=== PATIENT | male | born 1990 | race Caucasian/White ===

== ENCOUNTER 2018-11-13 14:46 | Inpatient (IN) | payer SELFPAY ==
[2018-11-13] MEDS ORDERED: SODIUM CHLORIDE 0.9% 500 ML INFUS.BAG IV ONE ×2 (15:53→16:15)
[2018-11-13 15:55] LABS: BASO % 0.4 % (0-2.0); HEMATOCRIT 42.3 % (35.4-49); HEMOGLOBIN 15.1 GM/dL (11.7-16.9); LYMPH % 17.7 % (8-40); MCH 30.7 pg (25.7-33.7); MCHC 35.6 g/dl (32.0-35.9); MEAN CELL VOLUME 86.1 fl (80-96); MEAN PLT VOLUME 9.1 fl (7.5-11.1); MONO % 8.2 % (3.8-10.2); NEUT % 73.7 % (42.8-82.8); PLATELET COUNT 237 K/MM3 (134-434); RBC 4.91 M/mm3 (4.00-5.60); RDW 12.9 % (11.9-15.9); WHITE BLOOD COUNT 5.8 K/mm3 (4.0-10.0)
[2018-11-13] MEDS ORDERED: ACETYLCYSTEINE 20% 200MG/ML 30ML VIAL *FOR INJECTION USE ONLY IVPB ONE ×5 (16:01→21:31)
[2018-11-13 16:08] LABS: INR 1.4 (0.83-1.09); PROTHROMBIN TIME (PATIENT) 16.6 SEC (9.7-13.0)
[2018-11-13 16:37] LABS: ALBUMIN 4.8 g/dl (3.4-5.0); BILIRUBIN,TOTAL 1.4 mg/dL (0.2-1); CALCIUM 9.4 mg/dL (8.5-10.1); POTASSIUM 3.7 mmol/L (3.5-5.1); TOT PROT 8.4 g/dl (6.4-8.2)
--- NOTE | 2018-11-13 17:02 | PDOC ---
History of Present Illness - General Chief Complaint: Pain, Acute Stated Complaint: ABD PAIN Time Seen by Provider: 11/13/18 15:08 History Source: Patient Exam Limitations: No Limitations Past History - Past Medical History Allergies/Adverse Reactions: Allergies Allergy/AdvReac Type Severity Reaction Status Date / Time No Known Allergies Allergy Verified 11/13/18 14:52 COPD: No - Psycho Social/Smoking Cessation Hx Smoking History: Never smoked Hx Alcohol Use: No Drug/Substance Use Hx: No Review of Systems - Review of Systems Able to Perform ROS?: Yes Is the patient limited Tamazight proficient: No *Physical Exam - Vital Signs Last Vital Signs Temp Pulse Resp BP Pulse Ox 97.9 F 70 16 144/69 100 11/13/18 14:47 11/13/18 14:47 11/13/18 14:47 11/13/18 14:47 11/13/18 14:47 ED Treatment Course - LABORATORY CBC & Chemistry Diagram: 11/13/18 15:46 11/13/18 15:46 - ADDITIONAL ORDERS Additional order review: Laboratory Results 11/13/18 11/13/18 11/13/18 16:40 15:46 15:46 PT with INR 16.60 H INR 1.40 H Sodium 137 Potassium 3.7 Chloride 105 Carbon Dioxide 24 Anion Gap 8 BUN 11.0 Creatinine 1.0 Est GFR (CKD-EPI)AfAm 119.86 Est GFR (CKD-EPI)NonAf 103.41 Random Glucose 126 H Calcium 9.4 Total Bilirubin 1.4 H AST 25 ALT 38 Alkaline Phosphatase 91 Total Protein 8.4 H Albumin 4.8 Salicylates < 1.7 L Acetaminophen 25.3 Alcohol, Quantitative 11/13/18 15:46 PT with INR INR Sodium Potassium Chloride Carbon Dioxide Anion Gap BUN Creatinine Est GFR (CKD-EPI)AfAm Est GFR (CKD-EPI)NonAf Random Glucose Calcium Total Bilirubin AST ALT Alkaline Phosphatase Total Protein Albumin Salicylates Acetaminophen Alcohol, Quantitative < 3.0 11/13/18 15:46 RBC 4.91 MCV 86.1 MCHC 35.6 RDW 12.9 MPV 9.1 Neutrophils % 73.7 Lymphocytes % 17.7 Monocytes % 8.2 Eosinophils % 0.0 Basophils % 0.4 - Medications Given in the ED: ED Medications Discontinued Medications Generic Name Dose Route Start Last Admin Trade Name Freq PRN Reason Stop Dose Admin Sodium Chloride 1,000 ml 11/13/18 15:53 11/13/18 16:36 Normal Saline - IV 11/13/18 15:54 1,000 ml ONCE ONE Administration Medical Decision Making - Medical Decision Making 11/13/18 15:20 HPI: 28M no known pmh presenting with abdominal pain and vomiting after ingestion of a large but unknown amount of tylenol at 11/13/18 2AM. Patient states he was depressed and suicidal due to martial issues. States he is no longer has SI. NBNB vomit x10, unable to tolerate PO. Denies coingestion and etoh. Endorses subjective fevers/chills and nausea. Denies chest pain, sob, dysuria. PMH: denies MEDs: denies Surg: denies NKDA ROS: CONSTITUTIONAL: Endorses F / C RESP: Denies SOB CARD: Denies chest pain GI: See HPI. : Denies dysuria PE: GEN: AAOx3, acutely in pain HEENT: NC/AT, EOMI, PERRLA, anicteric, no nystagmus. No facial asymmetry. Moist mucous membranes, no jaundice below tongue. Normal voice. Supple neck w/ FROM. CV: S1/S2, RRR, no m/r/g LUNG: CTAB, no wheezes, crackles, rales, rhonchi. GI: +TTP right side, worse at epigastrium. otherwise soft, nondistended. EXTREMITIES: 2+ distal pulses. No LE edema. No obvious deformities of all extremities. SKIN: warm, dry, normal turgor. No jaundice. PSYCH: depressed affect, not acutely suicidal. Speaking full comprehensible sentences. NEURO: AAOx3. Moving all limbs. Ambulates well w/ normal gait. MDM: 28M w/ abdominal pain and vomiting after intentional ingestion of large amount of tylenol. SA. Denies current SI. Intentional Acetaminophen OD - Patient presenting approx. 12 hours after ingestion, out of window for activated charcoal - CMP, CBC, acetaminophen lvl, salicyliate lvl - UA, UTox - EKG - NAC - Fluids - Poison control - 1:1 obs EKG demonstrates HR 65, MN 148, QRS 88, QTc 413. 11/13/18 17:20 Labs reviewed - acetaminophen 25.3 (approx 13-14 hour level), salicylates < 1.7, etoh < 3 - LFT, electrolytes, BUN/Cr wnl Discussed patient w/ [facility] Poison Control ( [place] ) who recommended the following : - Acetaminophen level is borderline, depends on how confident we are about the ingestion time, continue NAC loading dose - recheck LFTs and acetaminophen a few hours before 21h gildardo of NAC administration (~16:00) - redose NAC as needed 11/13/18 17:48 ICU consult Admit 11/13/18 17:[address] Scott Admitted // pending placement 11/13/18 18:24 Discussed patient w/ ICU team; admit to telemetry - continue NAC protocol - clarified w/ poison control regarding repeat LFT/acetaminophen timing - repeat LFT/acetaminophen lvl 11/14/18 at 11:00-12:00 hrs; we want to avoid a lapse in NAC administration in case levels remain elevated // ADMITTED Discharge - Discharge Information Problems reviewed: Yes Clinical Impression/Diagnosis: Overdose by acetaminophen Qualifiers: Encounter type: initial encounter Injury intent: intentional self-harm Qualified Code(s): T39.1X2A - Poisoning by 4-Aminophenol derivatives, intentional self-harm, initial encounter - Admission Yes - Follow up/Referral - Patient Discharge Instructions - Post Discharge Activity
--- NOTE | 2018-11-13 17:25 | PDOC ---
Attending Attestation - Resident Resident Name: Connor Haji - ED Attending Attestation I have performed the following: I have examined & evaluated the patient, The case was reviewed & discussed with the resident, I agree w/resident's findings & plan - HPI HPI: 11/13/18 17:22 28 YOM with no significant medical history Presenting with intentional ingestion of tylenol, by consuming 1 bottle of tylenol, unknown #of tablets, as suicide attempt at approx 2AM last night. now presenting to ED with RUQ/abdominal pain. +nausea vomiting. +subjective fevers Unable to drew PO intake No cp/sob, syncope, neuro changes 11/13/18 20:27 - Physicial Exam PE: 11/13/18 17:22 Agree with the resident's HPI and PE as documented in the electronic medical record. NAD, EOMI, PERRL, nl conjunctiva, anicteric; neck supple. lungs clear, RRR, abdomen soft diffuse tenderness, worse in RUQ. no rebound, guarding. Back nontender. HYATT x4, no focal neuro deficits. No peripheral edema. normal color for ethnicity, WWP. - Medical Decision Making 11/13/18 17:23 Vital Signs Temp Pulse Resp BP Pulse Ox 97.9 F 70 16 144/69 100 11/13/18 14:47 11/13/18 14:47 11/13/18 14:47 11/13/18 14:47 11/13/18 14:47 VS reviewed, wnl ddx tylenol toxicity, transaminitis,. liver failure, coagulopathy, dehydration, electrolyte/metabolic derangements, coingestants labs and lytes wnl tyl level 25 out of window >12 hours to benefit from activated charcoal. NAC course initiated EKG unremarkable, normal sinus rhythm. no interval derangements. given supportive care, analgesia, hydration, antiemetics, reeval no tylenol will trial nsaids, preserved cr function 11/13/18 17:31 - [facility] called, pt is right at border from presumed time of ingestion (from 2AM) , ~13 hours with tyl level 25 can c/w treatment and repeat dose before 21 hours from administration of NAC ( 4pm) - check tmw 12pm repeat labs and tyl level at that time. icu consulted for higher level of care, can go to tele for closer monitoring continuing on nac protocol. plan admit for medical management, trend levels and psych eval/cs for suicide attempt. admit to Dr Scott 11/13/18 17:35 11/13/18 18:35 11/13/18 20:28 11/13/18 20:28 Heart Score/ECG Review #1 ECG reviewed & interpreted by me at: 15:35 General ECG Interpretation: Sinus Rhythm, Normal Rate, Normal Intervals, No acute ischemic changes Compared to previous ECG there are: Previous ECG unavail 11/13/18 17:30 nonspecific T wave flattening/inversion in III only no contiguous lead changes.
[2018-11-13] MEDS ORDERED: KETOROLAC TROMETHAMINE 15 MG/ML VIAL IVPUSH ONE (17:43)
[2018-11-13] MEDS ORDERED: METOCLOPRAMIDE HCL INJECTION 10 MG/2 ML VIAL IVPUSH ONE (17:43)
--- NOTE | 2018-11-13 17:51 | CONSULT ---
Consultation: REQUESTING PROVIDER:Ed team CONSULT REQUEST: We have been asked to medically evaluate this patient for ( Tylenol Toxicity ). HISTORY OF PRESENT ILLNESS: 28 bell old male with no pmhx presented to ED due to sever abdominal pain , N/V started this am , pt swallowed many tables of tylenol over the counter does not know the exact amount , he weas trying to kill him self , has been feeling depressed fro 4 months due to marriage problems. he has similar thoughts in the past. pt has been vomiting continuously since the morning , and saw streak of blood as well. denies any fever, chills, headache, chest pain , constipation diarrhea or any abdominal symptoms. pt is not taking any meds at home and never seen by psychiatrist. pt have difficulty falling asleep and wake up at night some times with night mare that eh will loose his family. normal appetite and no loss of weight reported. abdominal pain med epigastric local non radiating . PMHx: Depression PShx: left elbow surgery Allergies: NKDA FHx: DM Social Hx : with 2 kids , denies smoking or drugs , but he reports former alcohol use and he quit 4 month ago he used to drink a lot of beers on weekend. REVIEW OF SYSTEMS: CONSTITUTIONAL: Absent: fever, chills, diaphoresis, generalized weakness, malaise, loss of appetite, weight change HEENT: Absent: rhinorrhea, nasal congestion, throat pain, throat swelling, difficulty swallowing, mouth swelling, ear pain, eye pain, visual changes CARDIOVASCULAR: Absent: chest pain, syncope, palpitations, irregular heart rate, lightheadedness , peripheral edema RESPIRATORY: Absent: cough, shortness of breath, dyspnea with exertion, orthopnea, wheezing, stridor, hemoptysis GASTROINTESTINAL: Absent: abdominal pain, abdominal distension, nausea, vomiting, diarrhea, constipation, melena, hematochezia GENITOURINARY: Absent: dysuria, frequency, urgency, hesitancy, hematuria, flank pain, genital pain MUSCULOSKELETAL: Absent: myalgia, arthralgia, joint swelling, back pain, neck pain SKIN: Absent: rash, itching, pallor HEMATOLOGIC/IMMUNOLOGIC: Absent: easy bleeding, easy bruising, lymphadenopathy, frequent infections ENDOCRINE: Absent: unexplained weight gain, unexplained weight loss, heat intolerance, cold intolerance NEUROLOGIC: Absent: headache, focal weakness or paresthesias, dizziness, unsteady gait, seizure, mental status changes, bladder or bowel incontinence PSYCHIATRIC: Absent: anxiety, depression, suicidal or homicidal ideation, hallucinations. PHYSICAL EXAMINATION Vital Signs - 24 hr 11/13/18 14:47 Temperature 97.9 F Pulse Rate 70 Respiratory 16 Rate Blood Pressure 144/69 O2 Sat by Pulse 100 Oximetry (%) GENERAL: Awake, alert, and fully oriented,depressed HEAD: Normal with no signs of trauma. EYES: Pupils equal, round and reactive to light, extraocular movements intact, sclera anicteric, EARS, NOSE, THROAT: Ears normal, nares patent, oropharynx clear without exudates. Moist mucous membranes. NECK: Normal range of motion, supple without lymphadenopathy, JVD, or masses. LUNGS: Breath sounds equal, clear to auscultation bilaterally. No wheezes, and no crackles. No accessory muscle use. HEART: Regular rate and rhythm, normal S1 and S2 without murmur, rub or gallop. ABDOMEN: Soft, Med epigastric tenderness, not distended, normoactive bowel sounds, MUSCULOSKELETAL: Normal range of motion at all joints. No bony deformities or tenderness. No CVA tenderness. UPPER EXTREMITIES: 2+ pulses, warm, well-perfused. No cyanosis. No clubbing. Cap refill <2 seconds. No peripheral edema. LOWER EXTREMITIES: 2+ pulses, warm, well-perfused. No calf tenderness. No peripheral edema. NEUROLOGICAL: Cranial nerves II-XII intact. Normal speech. PSYCHIATRIC: Cooperative. Good eye contact. feeling depressed and anxious about his family. Laboratory Results - last 24 hr 11/13/18 11/13/18 11/13/18 15:46 15:46 15:46 WBC 5.8 RBC 4.91 Hgb 15.1 Hct 42.3 MCV 86.1 MCH 30.7 MCHC 35.6 RDW 12.9 Plt Count 237 MPV 9.1 Absolute Neuts (auto) 4.3 Neutrophils % 73.7 Lymphocytes % 17.7 Monocytes % 8.2 Eosinophils % 0.0 Basophils % 0.4 Nucleated RBC % 0 PT with INR INR Sodium 137 Potassium 3.7 Chloride 105 Carbon Dioxide 24 Anion Gap 8 BUN 11.0 Creatinine 1.0 Est GFR (CKD-EPI)AfAm 119.86 Est GFR (CKD-EPI)NonAf 103.41 Random Glucose 126 H Calcium 9.4 Total Bilirubin 1.4 H AST 25 ALT 38 Alkaline Phosphatase 91 Total Protein 8.4 H Albumin 4.8 Salicylates Acetaminophen Alcohol, Quantitative < 3.0 11/13/18 11/13/18 15:46 16:40 WBC RBC Hgb Hct MCV MCH MCHC RDW Plt Count MPV Absolute Neuts (auto) Neutrophils % Lymphocytes % Monocytes % Eosinophils % Basophils % Nucleated RBC % PT with INR 16.60 H INR 1.40 H Sodium Potassium Chloride Carbon Dioxide Anion Gap BUN Creatinine Est GFR (CKD-EPI)AfAm Est GFR (CKD-EPI)NonAf Random Glucose Calcium Total Bilirubin AST ALT Alkaline Phosphatase Total Protein Albumin Salicylates < 1.7 L Acetaminophen 25.3 Alcohol, Quantitative CBC, BMP 11/13/18 15:46 11/13/18 15:46 ASSESSMENT/PLAN: 28 year old male with depression presented to Ed with abdominal pain N/v and some streak of blood after he swallow unkown amount of tylenol over the counter admitted to tele for treatment. # Tylenol over dose # suicidal thoughts # depression * monitor on tele * EKG NSR with no QTC prolongation * start N Acytele cystin 20 hours protocol in ED (In patients with no biochemical evidence of hepatic failure (ie, those with INR <2), use 21 hour IV protocol: 150 mg/kg loading dose over 60 minutes, followed by 50 mg/kg infused over 4 hours, with the final 100 mg/kg infused over the remaining 16 hours) * Zofran for nausea * IV fluids NS @ 100 CC /hr * Monitor LFts Q 8hrs , INR, PT, PTT * repeat cbc, cmp in am * BGM * salicylic acid level * repeat acetaminophen level. * repeat EKG in AM * 1: 1 monitor * psych consult * might benefit from zoloft and psychoethary as out pt * inform Poison control about LFts serially * monitor H/H * scds for dvts proph * PPI for GI proph * can be monitored on tele does not need icu level at this time , call us back if if he worsening or hemodynamically unstable. Dispo: We will continue to follow the patient. Thank you for this consultative opportunity. Visit type - Emergency Visit Emergency Visit: Yes Care time: The patient presented to the Emergency Department on the above date and was hospitalized for further evaluation of their emergent condition. - New Patient This patient is new to me today: Yes Date on this admission: 11/13/18 - Critical Care Critical Care patient: No ATTENDING PHYSICIAN STATEMENT I saw and evaluated the patient. I reviewed the resident's note and discussed the case with the resident. I agree with the resident's findings and plan as documented. SUBJECTIVE: OBJECTIVE: ASSESSMENT AND PLAN:
[2018-11-13] MEDS ORDERED: METOCLOPRAMIDE HCL INJECTION 10 MG/2 ML VIAL ONE (18:18)
[2018-11-13] MEDS ORDERED: KETOROLAC TROMETHAMINE 15 MG/ML VIAL ONE (18:28)
--- NOTE | 2018-11-13 19:35 | HP ---
Admitting History and Physical - Primary Care Physician PCP: Cely Scott - Admission History of Present Illness: 28 bell old male with no pmhx presented to ED due to sever abdominal pain , N/V started this am , pt swallowed many tables of tylenol over the counter does not know the exact amount , he weas trying to kill him self , has been feeling depressed fro 4 months due to marriage problems. he has similar thoughts in the past. pt has been vomiting continuously since the morning , and saw streak of blood as well. denies any fever, chills, headache, chest pain , constipation diarrhea or any abdominal symptoms. pt is not taking any meds at home and never seen by psychiatrist. pt have difficulty falling asleep and wake up at night some times with night mare that eh will loose his family. normal appetite and no loss of weight reported. abdominal pain med epigastric local non radiating . - Smoking History Smoking history: Never smoked - Alcohol/Substance Use Hx Alcohol Use: No Home Medications - Allergies Allergies/Adverse Reactions: Allergies Allergy/AdvReac Type Severity Reaction Status Date / Time No Known Allergies Allergy Verified 11/13/18 14:52 Physical Examination Vital Signs: Vital Signs Temperature 97.9 F 11/13/18 14:47 Pulse Rate 70 11/13/18 14:47 Respiratory Rate 16 11/13/18 14:47 Blood Pressure 144/69 11/13/18 14:47 O2 Sat by Pulse Oximetry (%) 100 11/13/18 14:47 Labs: CBC, BMP 11/13/18 15:46 11/13/18 15:46 Problem List - Problems (1) Overdose by acetaminophen Code(s): T39.1X1A - POISONING BY 4-AMINOPHENOL DERIVATIVES, ACCIDENTAL, INIT Qualifiers: Encounter type: initial encounter Injury intent: intentional self-harm Qualified Code(s): T39.1X2A - Poisoning by 4-Aminophenol derivatives, intentional self-harm, initial encounter Assessment/Plan Laboratory Tests 11/13/18 11/13/18 11/13/18 15:46 15:46 15:46 WBC 5.8 RBC 4.91 Hgb 15.1 Hct 42.3 MCV 86.1 MCH 30.7 MCHC 35.6 RDW 12.9 Plt Count 237 MPV 9.1 Absolute Neuts (auto) 4.3 Neutrophils % 73.7 Lymphocytes % 17.7 Monocytes % 8.2 Eosinophils % 0.0 Basophils % 0.4 Nucleated RBC % 0 PT with INR INR Sodium 137 Potassium 3.7 Chloride 105 Carbon Dioxide 24 Anion Gap 8 BUN 11.0 Creatinine 1.0 Est GFR (CKD-EPI)AfAm 119.86 Est GFR (CKD-EPI)NonAf 103.41 Random Glucose 126 H Calcium 9.4 Total Bilirubin 1.4 H AST 25 ALT 38 Alkaline Phosphatase 91 Total Protein 8.4 H Albumin 4.8 Salicylates Acetaminophen Alcohol, Quantitative < 3.0 11/13/18 11/13/18 15:46 16:40 WBC RBC Hgb Hct MCV MCH MCHC RDW Plt Count MPV Absolute Neuts (auto) Neutrophils % Lymphocytes % Monocytes % Eosinophils % Basophils % Nucleated RBC % PT with INR 16.60 H INR 1.40 H Sodium Potassium Chloride Carbon Dioxide Anion Gap BUN Creatinine Est GFR (CKD-EPI)AfAm Est GFR (CKD-EPI)NonAf Random Glucose Calcium Total Bilirubin AST ALT Alkaline Phosphatase Total Protein Albumin Salicylates < 1.7 L Acetaminophen 25.3 Alcohol, Quantitative
[2018-11-14 06:45] LABS: COCAINE, UR NEGATIVE ng/ml (CUTOFF=300); METHADONE, UR NEGATIVE ng/ml (CUTOFF=300); OPIATES, URI NEGATIVE ng/ml (CUTOFF=300); PHENCYCLIDINE,URINE NEGATIVE ng/ml (CUTOFF=25); URINE AMPHETAMINES NEGATIVE ng/ml (CUTOFF=500); URINE BARBITURATES NEGATIVE ng/ml (CUTOFF=200); URINE BENZODIAZEPINES NEGATIVE ng/ml (CUTOFF=200)
[2018-11-14 06:50] LABS: URINE APPEARANCE CLEAR; URINE COLOR DARK YELLOW
[2018-11-14 06:51] LABS: URINE BILIRUBIN NEGATIVE (NEGATIVE); URINE GLUCOSE (UA) NEGATIVE (NEGATIVE); URINE KETONE 40 mg/dl (NEGATIVE); URINE LEUK ESTERASE NEGATIVE (NEGATIVE); URINE NITRITE NEGATIVE (NEGATIVE); URINE PROTEIN 30 (NEGATIVE); URINE UROBILINOGEN 0.2 mg/dL (0.2-1.0)
[2018-11-14 06:52] LABS: URINE RBC 4 /hpf (0-4); URINE WBC 1 /hpf (0-5)
[2018-11-14 06:53] LABS: EPI CELLS 2.4 /HPF (0-5/HPF); HYALINE CASTS 3 /lpf (0-8); URINE BACTERIA 2.6 /hpf (NEGATIVE)
[2018-11-14 07:24] LABS: BASO % 0.4 % (0-2.0); EOS % 0.7 % (0-4.5); HEMATOCRIT 40.1 % (35.4-49); HEMOGLOBIN 14.1 GM/dL (11.7-16.9); LYMPH % 16.8 % (8-40); MCH 30.5 pg (25.7-33.7); MCHC 35.1 g/dl (32.0-35.9); MEAN CELL VOLUME 86.9 fl (80-96); MEAN PLT VOLUME 9.8 fl (7.5-11.1); MONO % 8.5 % (3.8-10.2); NEUT % 73.6 % (42.8-82.8); PLATELET COUNT 188 K/MM3 (134-434); RBC 4.62 M/mm3 (4.00-5.60); WHITE BLOOD COUNT 9.1 K/mm3 (4.0-10.0)
[2018-11-14 07:48] LABS: ALBUMIN 3.5 g/dl (3.4-5.0); BILIRUBIN,TOTAL 1.4 mg/dL (0.2-1); BLOOD UREA NITROGEN 8.3 mg/dL (7-18); CALCIUM 8.3 mg/dL (8.5-10.1); CREATININE 0.8 mg/dL (0.55-1.3); POTASSIUM 3.5 mmol/L (3.5-5.1); TOT PROT 6.6 g/dl (6.4-8.2)
--- NOTE | 2018-11-14 12:20 | EKG ---
Test Reason : Blood Pressure : / mmHG Vent. Rate : 059 BPM Atrial Rate : 059 BPM P-R Int : 154 ms QRS Dur : 090 ms QT Int : 424 ms P-R-T Axes : 065 071 032 degrees QTc Int : 419 ms SINUS BRADYCARDIA OTHERWISE NORMAL ECG NO PREVIOUS ECGS AVAILABLE Confirmed by FLORENCIA PEREZ, RICCI ([id number]) on 11/14/2018 12:19:45 PM Referred By: Confirmed By:RICCI DON MD
--- NOTE | 2018-11-14 13:50 | CON.PSY ---
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 I did not want to Kill nyself. I am ok now. I dont w3ant to , I hav3e my wif3e and kids. No Psych History opf previous attempts. Symptoms: reports: Depressed Mood - Previous Psychiatric Treatment Outpatient: None Inpatient: None - Previous Substance Abuse Treatment Outpatient: None Inpatient: None - Allergies Allergies: Allergies Allergy/AdvReac Type Severity Reaction Status Date / Time No Known Allergies Allergy Verified 11/13/18 14:52 - Current Living Status Usual Living Arrangement: With Spouse - Current Mental Status Evaluation Appearance: Well Groomed Attitude: Cooperative - Affect Affect: Constrictive Appropriateness: Appropriate to Content - Mood Mood: Euthymic - Speech/Language Expressive: Coherent - Psychomotor Activity Psychomotor Activity: Normal - Thought Process Thought Process: Intact - Thought Content Hallucinations: Absent Delusions: Absent - Self Perception Self Perception: No Impairment - Cognition Attention: Alert Orientation: Time Memory, Immediate Recall: Intact Memory, Short Term: 3/3 Memory, Remote with Promptin/3 - Concentration Serial Sevens Intact: Yes Simple Calculations Intact: Yes - Abstraction Proverb Interpretation: Intact Judgement: Minimally Impaired - Insight Insight: Intact - Impulse Control Impulse Control: Minimally Impaired - Suicidal Ideation Suicidal Ideation: No Plan: took tylenol pills but denies any active -plans now. - Homicidal Ideation Homicidal Ideation: No Problem List - Problems (1) Adjustment disorder with mixed disturbance of emotions and conduct Code(s): F43.25 - ADJUSTMENT DISORDER W MIXED DISTURB OF EMOTIONS AND CONDUCT Assessment/Plan 1) d/c 1:1. 2) discharge when medically stable, will seek Marital therapy. No need for any Psych Meds at this time.
[2018-11-14 14:34] LABS: ALBUMIN 3.5 g/dl (3.4-5.0); CALCIUM 8.5 mg/dL (8.5-10.1); CREATININE 0.8 mg/dL (0.55-1.3); POTASSIUM 3.3 mmol/L (3.5-5.1); TOT PROT 6.8 g/dl (6.4-8.2)
--- NOTE | 2018-11-14 18:02 | PN ---
Progress Note, Physician - Current Medication List Current Medications: Active Medications Potassium Chloride (K-Dur -) 40 meq PO DAILY MARICRUZ - Objective Vital Signs: Vital Signs Temperature 98.1 F 11/14/18 11:11 Pulse Rate 70 11/14/18 11:11 Respiratory Rate 18 11/14/18 11:11 Blood Pressure 118/75 11/14/18 11:11 O2 Sat by Pulse Oximetry (%) 98 11/14/18 11:11 Constitutional: Yes: No Distress HENT: Yes: Atraumatic Neck: Yes: Supple Cardiovascular: Yes: Regular Rate and Rhythm Respiratory: Yes: CTA Bilaterally Extremities: Yes: WNL Labs: CBC, BMP 11/14/18 06:17 11/14/18 13:55 INR, PTT INR 1.40 (0.83-1.09) H 11/13/18 15:46 Problem List - Problems (1) Overdose by acetaminophen Assessment/Plan: monitor LFTS Code(s): T39.1X1A - POISONING BY 4-AMINOPHENOL DERIVATIVES, ACCIDENTAL, INIT Qualifiers: Encounter type: initial encounter Injury intent: intentional self-harm Qualified Code(s): T39.1X2A - Poisoning by 4-Aminophenol derivatives, intentional self-harm, initial encounter (2) Adjustment disorder with mixed disturbance of emotions and conduct Code(s): F43.25 - ADJUSTMENT DISORDER W MIXED DISTURB OF EMOTIONS AND CONDUCT
[2018-11-14] MEDS ORDERED: POTASSIUM CHLORIDE TABS 20 MEQ TABLET.ER (FP) PO ONE ×2 (18:09→18:16)
[2018-11-14] MEDS: POTASSIUM CHLORIDE TABS 20 MEQ TABLET.ER (FP) PO SCH (18:20)
[2018-11-14 23:47] VITALS: BMI 22.8
[2018-11-15 08:21] LABS: BASO % 0.5 % (0-2.0); EOS % 1.6 % (0-4.5); HEMATOCRIT 39.5 % (35.4-49); HEMOGLOBIN 13.9 GM/dL (11.7-16.9); LYMPH % 13.3 % (8-40); MCH 30.5 pg (25.7-33.7); MCHC 35.3 g/dl (32.0-35.9); MEAN CELL VOLUME 86.5 fl (80-96); MEAN PLT VOLUME 9.3 fl (7.5-11.1); MONO % 7.7 % (3.8-10.2); NEUT % 76.9 % (42.8-82.8); PLATELET COUNT 166 K/MM3 (134-434); RBC 4.57 M/mm3 (4.00-5.60); RDW 13.2 % (11.9-15.9); WHITE BLOOD COUNT 6.4 K/mm3 (4.0-10.0)
[2018-11-15 08:58] LABS: ALBUMIN 3.9 g/dl (3.4-5.0); BILIRUBIN,TOTAL 1.2 mg/dL (0.2-1); BLOOD UREA NITROGEN 7.1 mg/dL (7-18); CREATININE 0.8 mg/dL (0.55-1.3); POTASSIUM 3.9 mmol/L (3.5-5.1)
[2018-11-15] MEDS: POTASSIUM CHLORIDE TABS 20 MEQ TABLET.ER (FP) PO SCH (09:14)
--- NOTE | 2018-11-15 14:37 | EKG ---
Test Reason : Blood Pressure : / mmHG Vent. Rate : 065 BPM Atrial Rate : 065 BPM P-R Int : 148 ms QRS Dur : 088 ms QT Int : 400 ms P-R-T Axes : 058 063 024 degrees QTc Int : 416 ms NORMAL SINUS RHYTHM POSSIBLE LEFT ATRIAL ENLARGEMENT INCOMPLETE RBBB NO PREVIOUS ECGS AVAILABLE Confirmed by LANI ORTEGA MD ([id number]) on 11/15/2018 2:36:36 PM Referred By: Confirmed By:LANI ORTEGA MD
--- NOTE | 2018-11-15 17:47 | PN ---
Progress Note, Physician - Current Medication List Current Medications: Active Medications Sodium Chloride (Normal Saline -) 1,000 mls @ 100 mls/hr IV ASDIR MARICRUZ - Objective Vital Signs: Vital Signs Temperature 98.7 F 11/15/18 09:15 Pulse Rate 70 11/15/18 09:15 Respiratory Rate 16 11/15/18 09:15 Blood Pressure 124/66 11/15/18 09:15 O2 Sat by Pulse Oximetry (%) 97 11/15/18 09:00 Constitutional: Yes: No Distress HENT: Yes: Atraumatic Neck: Yes: Supple Cardiovascular: Yes: Regular Rate and Rhythm Respiratory: Yes: CTA Bilaterally Gastrointestinal: Yes: Normal Bowel Sounds Extremities: Yes: WNL Edema: No Neurological: Yes: Alert, Oriented Labs: CBC, BMP 11/15/18 07:35 11/15/18 07:35 INR, PTT INR 1.40 (0.83-1.09) H 11/13/18 15:46 Problem List - Problems (1) Overdose by acetaminophen Assessment/Plan: monitor LFTS ivf spoke with dr santos ...poison control follow up lfts, ivf call tomorrow if lfts go up 212 poisons Code(s): T39.1X1A - POISONING BY 4-AMINOPHENOL DERIVATIVES, ACCIDENTAL, INIT Qualifiers: Encounter type: initial encounter Injury intent: intentional self-harm Qualified Code(s): T39.1X2A - Poisoning by 4-Aminophenol derivatives, intentional self-harm, initial encounter (2) Adjustment disorder with mixed disturbance of emotions and conduct Code(s): F43.25 - ADJUSTMENT DISORDER W MIXED DISTURB OF EMOTIONS AND CONDUCT
[2018-11-15] MEDS: SODIUM CHLORIDE 1,000 ML IV SCH ×2 (18:22→20:56)
[2018-11-15] MEDS ORDERED: FLU VACCINE QUAD 60 MCG/0.5 ML (MDV 19-20) IM ONE (18:46)
[2018-11-15 20:01] LABS: ALBUMIN 4.1 g/dl (3.4-5.0); BILIRUBIN,TOTAL 0.9 mg/dL (0.2-1); BLOOD UREA NITROGEN 8.1 mg/dL (7-18); CREATININE 0.9 mg/dL (0.55-1.3); POTASSIUM 3.9 mmol/L (3.5-5.1); TOT PROT 7.7 g/dl (6.4-8.2)
[2018-11-16 08:31] LABS: ALBUMIN 3.6 g/dl (3.4-5.0); BLOOD UREA NITROGEN 7.4 mg/dL (7-18); CALCIUM 8.8 mg/dL (8.5-10.1); CREATININE 0.8 mg/dL (0.55-1.3); POTASSIUM 3.9 mmol/L (3.5-5.1); TOT PROT 6.9 g/dl (6.4-8.2)
--- NOTE | 2018-11-16 12:43 | PN ---
Progress Note, Physician - Current Medication List Current Medications: Active Medications Sodium Chloride (Normal Saline -) 1,000 mls @ 100 mls/hr IV ASDIR MARICRUZ Last Admin: 11/15/18 20:56 Dose: 100 mls/hr - Objective Vital Signs: Vital Signs Temperature 97.7 F 11/16/18 05:55 Pulse Rate 67 11/16/18 05:55 Respiratory Rate 18 11/16/18 05:55 Blood Pressure 104/68 11/16/18 05:55 O2 Sat by Pulse Oximetry (%) 100 11/16/18 03:00 Constitutional: Yes: No Distress HENT: Yes: Atraumatic Neck: Yes: Supple Cardiovascular: Yes: Regular Rate and Rhythm Respiratory: Yes: CTA Bilaterally Extremities: Yes: WNL Edema: No Neurological: Yes: Alert, Oriented Labs: CBC, BMP 11/15/18 07:35 11/16/18 07:00 INR, PTT INR 1.40 (0.83-1.09) H 11/13/18 15:46 Problem List - Problems (1) Overdose by acetaminophen Assessment/Plan: monitor LFTS ivf spoke with dr santos ...poison control follow up lfts, ivf call tomorrow if lfts go up 212 poisons called poison control as lft went up spoke with saulo gooden who spoke to dr waggoner because lfts are trending down, does not need to repeat acetadote monitor lfts, inr and cr will call gi also for opinion Code(s): T39.1X1A - POISONING BY 4-AMINOPHENOL DERIVATIVES, ACCIDENTAL, INIT Qualifiers: Encounter type: initial encounter Injury intent: intentional self-harm Qualified Code(s): T39.1X2A - Poisoning by 4-Aminophenol derivatives, intentional self-harm, initial encounter (2) Adjustment disorder with mixed disturbance of emotions and conduct Code(s): F43.25 - ADJUSTMENT DISORDER W MIXED DISTURB OF EMOTIONS AND CONDUCT
--- NOTE | 2018-11-16 13:54 | CON.GI ---
Consult Consult Specialty:: GI Referred by:: Dr. Scott Reason for Consultation:: APAP overdose - History of Present Illness Chief Complaint: I took 20 tylenol pills because I was depressed History of Present Illness: 28M admitted through [facility] 11/13 for evaluation of abdominal pain. He believes that he had taken "maybe 20 pills of the "small" tylenol pills 2am 11/13 ( presumably 325mg)" because he was depressed and wanted to kill himself. At the 12-13 hour gildardo APAP level was 25. He had 2 doses of acetadote administered at 4pm and 9:30 pm 11/13. Acetaminophen level at 2pm 11/14 was <2. 11/14 transaminases began to rise. It appears as though they peaked 11/15 with AST: 525 ALT: 1073. Bilirubin was mildly elevated on admission and has normalized. INR was 1.4 on 11/13. He currently denies any focal complaints. he denies suicide attempts in the past. He denies ingestion of other medications or alcohol ingestion. There is no personal or family history of prexisting liver disease. - History Source History Provided By: Patient, Medical Record - Past Medical History Additional Medical History: Denies - Past Surgical History Additional Surgical History: Left elbow surgery - Alcohol/Substance Use Hx Alcohol Use: No History of Substance Use: reports: None - Smoking History Smoking history: Never smoked Have you smoked in the past 12 months: No - Social History Usual Living Arrangement: With Spouse ADL: Independent Occupation: Works as a floorer Place of : Other ([place]) History of Recent Travel: No Home Medications - Allergies Allergies/Adverse Reactions: Allergies Allergy/AdvReac Type Severity Reaction Status Date / Time No Known Allergies Allergy Verified 11/13/18 14:52 - Home Medications Home Medications: Ambulatory Orders NK [No Known Home Medication] 11/13/18 Family Medical History Other Family History: Mother: Alive: healthy. Father: Alive: DM II. 1 brother / 1 sister: healthy. 2 daughters: healthy. No h/o liver disease Review of Systems - Review of Systems Constitutional: denies: Fever Cardiovascular: denies: Chest Pain Respiratory: denies: Cough Gastrointestinal: reports: Abdominal Pain (resolved) Physical Exam-GI Vital Signs: Vital Signs Temperature 97.7 F 11/16/18 05:55 Pulse Rate 67 11/16/18 05:55 Respiratory Rate 18 11/16/18 05:55 Blood Pressure 104/68 11/16/18 05:55 O2 Sat by Pulse Oximetry (%) 100 11/16/18 03:00 Constitutional: Yes: Calm Eyes: No: Sclera Icterus Cardiovascular: Yes: Regular Rate and Rhythm Respiratory: Yes: CTA Bilaterally. No: Diminished Gastrointestinal Inspection: No: Distention, Scars ...Auscultate: Yes: Normoactive Bowel Sounds ...Palpate: Yes: Soft. No: Hepatomegaly, Splenomegaly, Tenderness ...Percussion: No: Tympanitic Edema: No (No LE edema) Neurological: Yes: Alert, Oriented. No: Asterix[facility] Labs: CBC, BMP 11/15/18 07:35 11/16/18 07:00 INR, PTT INR 1.40 (0.83-1.09) H 11/13/18 15:46 Hepatic Panel Total Bilirubin 1.0 mg/dL (0.2-1) 11/16/18 07:00 AST 277 U/L (15-37) H 11/16/18 07:00 ALT 813 U/L (13-61) H 11/16/18 07:00 Alkaline Phosphatase 71 U/L (45-117) 11/16/18 07:00 Albumin 3.6 g/dl (3.4-5.0) 11/16/18 07:00 Problem List - Problems (1) Overdose by acetaminophen Assessment/Plan: Likely stage 3 of tylenol toxicity where peak hepatotoxicity occurs. Renal function remains stable and transaminitis seems to be trending downward. Clinically asymptomatic: Avoid hepatotoxic agents Lactic acid, PT/INR ordered for today Monitor LFTS includinjg PT/INR. Spoke with poison control. If upward trend in INR/transaminases, poison control should be contacted as the toxicology fellow would be consulted and decision made re: renitiation of acetadote. I would also advise transfer to a liver center as well if worsening liver chemistries and synthetic function. Patient denies further suicidal ideations to me and he has been evaluated by psych Code(s): T39.1X1A - POISONING BY 4-AMINOPHENOL DERIVATIVES, ACCIDENTAL, INIT Qualifiers: Encounter type: initial encounter Injury intent: intentional self-harm Qualified Code(s): T39.1X2A - Poisoning by 4-Aminophenol derivatives, intentional self-harm, initial encounter
[2018-11-16 16:14] LABS: BILIRUBIN,TOTAL 0.8 mg/dL (0.2-1); BLOOD UREA NITROGEN 8.4 mg/dL (7-18); CALCIUM 8.8 mg/dL (8.5-10.1); POTASSIUM 4.1 mmol/L (3.5-5.1); TOT PROT 7.4 g/dl (6.4-8.2)
[2018-11-16 16:23] LABS: INR 1.22 (0.83-1.09); PROTHROMBIN TIME (PATIENT) 14.4 SEC (9.7-13.0)
[2018-11-17] MEDS: SODIUM CHLORIDE 1,000 ML IV SCH (05:04)
[2018-11-17 08:23] LABS: INR 1.11 (0.83-1.09); PROTHROMBIN TIME (PATIENT) 13.1 SEC (9.7-13.0)
[2018-11-17 08:51] LABS: ALBUMIN 3.6 g/dl (3.4-5.0); BILIRUBIN,TOTAL 0.7 mg/dL (0.2-1); BLOOD UREA NITROGEN 10.6 mg/dL (7-18); CREATININE 0.8 mg/dL (0.55-1.3); POTASSIUM 4.1 mmol/L (3.5-5.1)
--- NOTE | 2018-11-17 17:09 | PN ---
Progress Note, Physician - Current Medication List Current Medications: Active Medications Sodium Chloride (Normal Saline -) 1,000 mls @ 100 mls/hr IV ASDIR MARICRUZ Last Admin: 11/17/18 05:04 Dose: 100 mls/hr - Objective Vital Signs: Vital Signs Temperature 97.8 F 11/17/18 10:00 Pulse Rate 62 11/17/18 10:00 Respiratory Rate 18 11/17/18 10:00 Blood Pressure 121/60 11/17/18 10:00 O2 Sat by Pulse Oximetry (%) 97 11/16/18 22:00 Constitutional: Yes: No Distress HENT: Yes: Atraumatic Cardiovascular: Yes: Regular Rate and Rhythm Respiratory: Yes: CTA Bilaterally Gastrointestinal: Yes: Normal Bowel Sounds Extremities: Yes: WNL Neurological: Yes: Alert, Oriented Labs: CBC, BMP 11/15/18 07:35 11/17/18 07:10 INR, PTT INR 1.11 (0.83-1.09) H 11/17/18 07:10 Problem List - Problems (1) Overdose by acetaminophen Assessment/Plan: monitor LFTS ivf spoke with dr santos ...poison control follow up lfts, ivf call tomorrow if lfts go up 212 poisons called poison control as lft went up spoke with saulo gooden who spoke to dr waggoner because lfts are trending down, does not need to repeat acetadote monitor lfts, inr and cr will call gi also for opinion Code(s): T39.1X1A - POISONING BY 4-AMINOPHENOL DERIVATIVES, ACCIDENTAL, INIT Qualifiers: Encounter type: initial encounter Injury intent: intentional self-harm Qualified Code(s): T39.1X2A - Poisoning by 4-Aminophenol derivatives, intentional self-harm, initial encounter (2) Adjustment disorder with mixed disturbance of emotions and conduct Code(s): F43.25 - ADJUSTMENT DISORDER W MIXED DISTURB OF EMOTIONS AND CONDUCT
[2018-11-18 07:40] LABS: ALBUMIN 3.8 g/dl (3.4-5.0); BILIRUBIN,TOTAL 0.6 mg/dL (0.2-1); BLOOD UREA NITROGEN 9.1 mg/dL (7-18); CREATININE 0.8 mg/dL (0.55-1.3); POTASSIUM 4.1 mmol/L (3.5-5.1); TOT PROT 7.1 g/dl (6.4-8.2)
[2018-11-18 09:45] LABS: INR 1.12 (0.83-1.09); PROTHROMBIN TIME (PATIENT) 13.2 SEC (9.7-13.0)
[2018-11-18 10:36] VITALS: BP 108/73; PULSE 70; TEMP 97.9
--- NOTE | 2018-11-18 11:30 | DS ---
Physical Examination Vital Signs: Vital Signs Temperature 97.9 F 11/18/18 10:00 Pulse Rate 70 11/18/18 10:00 Respiratory Rate 20 11/18/18 10:00 Blood Pressure 108/73 11/18/18 10:00 O2 Sat by Pulse Oximetry (%) 97 11/16/18 22:00 Labs: CBC, BMP 11/15/18 07:35 11/18/18 06:25 Discharge Summary Problems reviewed: Yes Reason For Visit: ACETAMINOPHEN OVERDOSE Current Active Problems Adjustment disorder with mixed disturbance of emotions and conduct (Acute) Overdose by acetaminophen (Acute) - Instructions Diet, Activity, Other Instructions: fu cbc, lfts inr in 2-3 days - Home Medications Comprehensive Discharge Medication List: Ambulatory Orders NK [No Known Home Medication] 11/13/18
[2018-11-18 21:11] LABS: HEP B CORE AB, TOT Negative (Negative)
== END 2018-11-18 12:39 | disposition home or self-care (01) | DRG 812 ==
LOC: JER 14:46 → JERBED 17:57 → J7W 11-14 23:19
PROVIDERS: ADMIT Internal Medicine; ATTEND Internal Medicine
DX: T39.1X2A Poisoning by 4-Aminophenol derivatives, intentional self-harm, initial encounter (principal); Y92.098 Other place in other non-institutional residence as the place of occurrence of the external cause; F32.9 Major depressive disorder, single episode, unspecified; F43.25 Adjustment disorder with mixed disturbance of emotions and conduct; R11.2 Nausea with vomiting, unspecified
CPT/HCPCS: 36415; 71045-TC-FY; 76705-TC; 80053; 80307; 81003; 83605; 85025; 85610; 86704; 86706; 86707; 86708; 86709; 86803; 87340; 93005; 93010; 99285-25; J7030; Q2036